=== PATIENT | male | born 1960 | race Caucasian/White ===

== ENCOUNTER 2019-11-17 17:20 | Emergency (ER) | payer MEDICAID ==
[~2019-11-17] VITALS: Ht 182.9 cm; Wt 93.0 kg
[2019-11-17] MEDS ORDERED: ACETAMINOPHEN ES 500 MG TABLET ONE (17:35)
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
[2019-11-17] MEDS: ACETAMINOPHEN ES 500 MG TABLET PO ONE (17:42)
[2019-11-17 18:51] VITALS: BP 159/95
--- NOTE | 2019-11-17 18:51 | NUR ---
PATIENT DENIES PAINA T THIS TIME, AMBULATORY WITH STEADY GAIT. NO DISTRESS NOTED. Patient discharged to home in stable condition. Written and verbal after care instructions given. Patient verbalizes understanding of instruction.
== END 2019-11-17 18:52 | disposition home or self-care (01) ==
LOC: ER 17:24
DX: R07.89 Other chest pain (principal); M25.562 Pain in left knee; I10 Essential (primary) hypertension; E11.9 Type 2 diabetes mellitus without complications; V49.59XA Passenger injured in collision with other motor vehicles in traffic accident, initial encounter; Y93.89 Activity, other specified; Y92.413 State road as the place of occurrence of the external cause; Y99.8 Other external cause status
CPT/HCPCS: 71045-TC